=== PATIENT | female | born 1935 | race Caucasian/White ===

== ENCOUNTER 2016-10-25 18:21 | Emergency (ER) | payer MEDICARE, OTHER ==
[2016-10-25 13:44] LABS: BASOPHILS 0.7 %; BASOPHILS ABSOLUTE 0.03 10/3/uL (0.0-0.16); EOSINOPHILS ABSOLUTE 0.04 10/3/uL (0.0-0.53); HEMATOCRIT 37.2 % (36.0-48.0); HEMOGLOBIN 11.5 g/dL (12.0-16.0); LYMPHOCYTES 24.8 %; LYMPHOCYTES ABSOLUTE 1.04 10/3/uL (0.67-4.30); MEAN CORPUS HGB CONC 30.9 g/dL (32.0-36.0); MEAN CORPUSCULAR HEMOGLOB 23.6 pg (26.0-34.0); MONOCYTES 7.9 %; MONOCYTES ABSOLUTE 0.33 10/3/uL (0.21-1.20); NEUTROPHILS 65.6 %; NEUTROPHILS ABSOLUTE 2.75 10/3/uL (2.02-8.40); PLATELET COUNT 124 10/3/uL (150-400); RED CELL COUNT 4.87 10/6/uL (4.0-5.6); WHITE BLOOD CELLS 4.2 10/3/uL (4.5-10.5)
[2016-10-25 13:45] LABS: ER CBC TAT 0 Hrs 00 MinsNP; MANUAL DIFF NO %; MEAN CORPUSCULAR VOLUME 76.4 fL (80-100); RBC DISTRIBUTION WIDTH 20.9 % (12.0-16.0)
[2016-10-25 13:52] LABS: INTERNATIONAL NORMAL RATI 1.6 UNITS (-); PARTIAL THROMBO TIME 29.1 SEC (22.5-37.2); PROTIME (NOT ORD) 18.6 SEC (12.0-14.5)
[2016-10-25 13:59] LABS: BUN (BLOOD UREA NITROGEN) 32 MG/DL (6-23); CHEST PAIN PROFILE TAT 0 Hrs 26 Mins; CHLORIDE, SERUM 107 MMOL/L (96-112); CO2 (CARBON DIOXIDE) 25 MMOL/L (24-34); CREATININE 1.19 MG/DL (0.55-1.02); GFR AFRICAN AMERICAN 49 ML/MIN (>=60); GFR NON AFRICAN AMERICAN 42 ML/MIN (>=60); GLUCOSE, SERUM 86 MG/DL (60-99); POTASSIUM, SERUM 3.7 MMOL/L (3.5-5.3); SODIUM, SERUM 141 MMOL/L (135-148); TROPONIN I <0.02 NG/ML (<0.05)
[~2016-10-25 18:21] MED LIST: ASAB PO; CLARIT10 PO; CORDARONE PO; COUMADIN4 MG PO; FLONASE NAS; IRON325 MG PO; JANTOVEN5 MG OR; K-TABS10 MEQ PO; KLOR-CON 1010 MEQ PO; L20 PO; L40 PO; LEVOTHYROXIN75 MCG PO; LEXAPRO10 PO; LOP25 PO; LOP50 PO; LOVENOX40 SC; MAX25 PO; MEVACOR40 MG PO; OCEAN NAS; PACERONE200 MG PO; SILTUSSIN100 MG/5 M PO; SPIRO25 PO; SYN075 PO; TAMBOCOR PO; VISINE0.05 % OPH; ZAROX2.5B PO; [UNRECOGNIZED DRUG - OTHER] OT
== END 2016-10-25 20:26 | disposition home or self-care (01) ==
LOC: ER 18:21
PROVIDERS: Emergency Medicine
DX: I50.9 Heart failure, unspecified (principal); Z87.891 Personal history of nicotine dependence; I48.91 Unspecified atrial fibrillation; Z79.899 Other long term (current) drug therapy; Z79.01 Long term (current) use of anticoagulants
CPT/HCPCS: 71020; 80048; 83735; 83880; 84484; 85025; 85610; 85730; 93005; 96374; 99285